=== PATIENT | female | born 1980 | race Two or more races ===

== ENCOUNTER → 2019-12-16 14:03 | Outpatient (CLI) | payer OTHER, SELFPAY ==
--- NOTE | ~2019-12-16 | MMUS_ITS ---
EXAMINATION: MM diagnostic tere BI w marsha, US breast LT limited HISTORY: Palpable lump in the upper outer quadrant of the left breast TECHNIQUE: Craniocaudal, mediolateral, and mediolateral oblique 3-D tomosynthesis images of the brekelly ts were performed and synthetic 2-D images were generated. CAD analysis was submitted and interpreted . High resolution limited left breast ultrasound was performed. COMPARISON: None, baseline BREAST PARENCHYMAL COMPOSITION: There are scattered areas of fibroglandular density. FINDINGS: MAMMOGRAPHIC FINDINGS: Right breast: There is no evidence of suspicious mass, calcification, or architectural distortion to suggest malignancy. Left breast: There is a focal asymmetry in the middle third of the upper breast at the 1:00 location 4 cm from the nipple corresponding to the palpable abnormality of concern. No suspicious calcificatio n or architectural distortion are identified. ULTRASOUND: There is a 1.6 x 0.8 cm complex cystic and solid mass at the 12:00 location in the breast 3 cm from t he nipple corresponding to the palpable abnormality of concern. There is mild peripheral vascularity and no posterior features. IMPRESSION: 1. Mammographic and sonographic findings suspicious for small left breast hematoma. Recommend follow- up targeted left breast ultrasound in one month to evaluate for resolution which would suggest a tangela clementina. If the mass does not resolve in this interval, would recommend proceeding to ultrasound-guided biopsy at that time. 2. No mammographic evidence of malignancy in the right breast. Annual screening mammography is recomm ended. BI-RADS category 4, suspicious findings. Reviewed, dictated and finalized at location A. IMPRESSION: 1. Mammographic and sonographic findings suspicious for small left breast hemat del. Recommend follow-up targeted left breast ultrasound in one month to evalua te for resolution which would suggest a hematoma. If the mass does not resolve in this interval, would recommend proceeding to ultrasound-guided biopsy at skip t time. 2. No mammographic evidence of malignancy in the right breast. Annual screening mammography is recommended. BI-RADS category 4, suspicious findings.
== END ==
PROVIDERS: Visit Provider Obstetrics & Gynecology
DX: N63.20 Unspecified lump in the left breast, unspecified quadrant (principal); R92.8 Other abnormal and inconclusive findings on diagnostic imaging of breast
CPT/HCPCS: 76642; 77062; 77066; G0279

== ENCOUNTER → 2020-01-16 15:00 | Outpatient (CLI) | payer OTHER, SELFPAY ==
--- NOTE | ~2020-01-16 | US_ITS ---
US breast LT limited INDICATION: Follow-up left breast mass TECHNIQUE: Dedicated left breast ultrasound COMPARISON: 12/16/2019 FINDINGS: The left breast is composed of normal heterogeneous echotexture without focal solid or cyst ic mass. Interval resolution of complex mass at the 12:00 position seen on prior examination. IMPRESSION: 1: Normal left breast ultrasound. BI-RADS CATEGORY 1 - NEGATIVE Reviewed, dictated and finalized at location A.
== END ==
PROVIDERS: Visit Provider Obstetrics & Gynecology
DX: N64.89 Other specified disorders of breast (principal)
CPT/HCPCS: 76642

== ENCOUNTER 2021-01-17 12:07 | Emergency (ER) | payer OTHER, SELFPAY ==
--- NOTE | ~2021-01-17 | US_ITS ---
EXAMINATION: US venous doppler LE RT DATE: 01/17/2021 12:32 INDICATION: Right lower limb pain and swelling. TECHNIQUE: Grayscale ultrasound images without and with compression and Doppler ultrasound images of the right lower extremity veins were obtained. COMPARISON: Ultrasound 07/26/2007 FINDINGS: The visualized portions of right common femoral vein, profunda (deep) femoral vein, femoral vein, pop liteal vein, peroneal veins, posterior tibial veins, and greater saphenous vein outflow are patent. IMPRESSION: 1. No deep venous thrombosis. Reviewed, dictated and finalized at location A.
[2021-01-17 12:09] VITALS: BP 109/76; PULSE 93; RESP 16; TEMP 36.6; O2SAT 100
[2021-01-17 14:20] VITALS: BP 111/64; PULSE 82; RESP 16; O2SAT 100
--- NOTE | 2021-01-17 14:40 | ED.GENADULT ---
HPI - General Adult General Chief complaint: Extremity Problem,Nontraumatic Stated complaint: right leg pain Time Seen by Provider: 01/17/21 14:11 Source: patient and RN notes reviewed Mode of arrival: ambulatory Limitations: no limitations History of Present Illness HPI narrative: Patient is a 40-year-old female who presents to emergency department for evaluation of tender swollen right forefoot noted history of swelling of the foot since she was a child but was concerned given it was warm and tender 1 day ago patient noticed warmth and tenderness has resolved now she has resultant swelling patient on arrival is in no distress denies injury or trauma or other complaints Related Data Home Medications Medication Instructions Recorded Confirmed levothyroxine 01/17/21 Allergies Allergy/AdvReac Type Severity Reaction Status Date / Time No Known Allergies Allergy Verified 01/17/21 14:19 Review of Systems Review of Systems: All systems reviewed & are unremarkable except as noted in HPI and below PMFSH Family History Family History (Updated 09/04/16 @ 14:11 by DOCTOR UNKNOWN) Mother Patient's mother is in good health Father Patient's father is in good health Social History Social History (Updated 01/17/21 @ 14:41 by Tung Burr PA-C) Smoking status: Current every day smoker Second hand tobacco smoke exposure: No Alcohol intake: never Gender identity (if verbalized by the patient): Female Exam Narrative: GENERAL: Well-appearing, well-nourished, and in no acute distress. HEAD: Normocephalic, atraumatic. EYES: PERRLA and EOMI. ENT: Nares clear, no rhinorrhea or epistaxis. Mucous membranes moist. CHEST: Clear to auscultation. No respiratory distress. No wheezes rales or rhonchi HEART: Regular rate and rhythm. No murmur heard. Normal peripheral pulses. EXTREMITIES: Normal range of motion. 1+ edema right forefoot midfoot no other deformities noted no erythema no warmth to touch SKIN: Warm, dry, no rash. NEURO: No focal deficits. Alert and oriented x3. Neurovascularly intact PSYCH: Normal mood and affect. Course Course Emergency Course: Patient in the room no distress aware of case findings treatment plan diagnosis felt appropriate for outpatient reevaluation made aware of her case findings Vital Signs Vital signs: Vital Signs Temperature 98 F 01/17/21 12:09 Pulse Rate 93 01/17/21 12:09 Respiratory Rate 16 01/17/21 12:09 Blood Pressure 109/76 01/17/21 12:09 Pulse Oximetry 100 01/17/21 12:09 Temperature 98 F 01/17/21 12:09 Pulse Rate 82 01/17/21 14:20 Respiratory Rate 16 01/17/21 14:20 Blood Pressure 111/64 01/17/21 14:20 Pulse Oximetry 100 01/17/21 14:20 Medical Decision Making MDM Narrative Medical decision making narrative: Patients injury or pain is consistent with musculoskeletal etiology. No signs of neurological or vascular compromise on exam. Compartments and tisues are soft without signs of compartment syndrome. Pain is felt appropriate for further evaluation on an outpatient basis. Vital Signs Vital Signs: Vital Signs Temperature 98 F 01/17/21 12:09 Pulse Rate 93 01/17/21 12:09 Respiratory Rate 16 01/17/21 12:09 Blood Pressure 109/76 01/17/21 12:09 Pulse Oximetry 100 01/17/21 12:09 Temperature 98 F 01/17/21 12:09 Pulse Rate 82 01/17/21 14:20 Respiratory Rate 16 01/17/21 14:20 Blood Pressure 111/64 01/17/21 14:20 Pulse Oximetry 100 01/17/21 14:20 Imaging Data Radiologist's impression: ITS Impressions Venous Doppler Study 01/17/21 12:33 IMPRESSION: 1. No deep venous thrombosis. Discharge Plan Discharge Clinical Impression: Swelling of right foot Patient Disposition: Home, Self-Care Condition: Stable Instructions: Antibiotic Form, Leg Pain (ED) Additional Instructions: Limited weight on the affected leg until able to bear weight without pain.
== END 2021-01-17 15:07 | disposition home or self-care (01) ==
LOC: ANHED 14:51
PROVIDERS: Emergency Provider Emergency Medicine
DX: M79.89 Other specified soft tissue disorders (principal); F17.200 Nicotine dependence, unspecified, uncomplicated
CPT/HCPCS: 93971; 99284

== ENCOUNTER → 2021-10-07 12:33 | Outpatient (CLI) | payer OTHER, SELFPAY ==
--- NOTE | ~2021-10-07 | MM_ITS ---
EXAMINATION: MM screening tere BI w marsha HISTORY: Screening TECHNIQUE: Craniocaudal and mediolateral oblique 3-D tomosynthesis images were obtained and synthetic 2-D images were generated. CAD analysis was submitted and interpreted. COMPARISON: 12/16/2019 BREAST PARENCHYMAL COMPOSITION: There are scattered areas of fibroglandular density. FINDINGS: There is no evidence of suspicious mass, calcification, or architectural distortion to sugg est malignancy in either breast. There has been no suspicious interval change. IMPRESSION: 1. No mammographic evidence of malignancy. 2. Recommend routine screening mammography in one year. BI-RADS Category 1: Negative Reviewed, dictated and finalized at location A.
== END ==
PROVIDERS: PCP Student in an Organized Health Care Education/Training Program; Visit Provider Student in an Organized Health Care Education/Training Program
DX: Z12.31 Encounter for screening mammogram for malignant neoplasm of breast (principal)
CPT/HCPCS: 77063; 77067

== ENCOUNTER 2024-01-23 05:20 | Observation (INO) | payer OTHER, SELFPAY ==
[2024-01-23] VITALS (22 sets, daily range): BP systolic 91–115; BP diastolic 55–76; PULSE 68–99; RESP 12–19; TEMP 36.3–37.1; O2SAT 97–100
--- NOTE | ~2024-01-23 | CT_ITS ---
EXAMINATION: CT abdomen pelvis w con DATE: 01/23/2024 07:17 INDICATION: Right abdominal pain. TECHNIQUE: Computed tomography (CT) of the abdomen and pelvis was performed with 100 mL Omnipaque 350 intravenous contrast. Automated exposure control and iterative reconstruction technique were employe d. The dose-length product was 286.79 mGy-cm. COMPARISON: None. FINDINGS: The visualized portions of the lung bases demonstrate mild atelectasis. No pleural effusion . The heart size is normal. No pericardial effusion. The liver, gallbladder, spleen, pancreas, and ad renal glands are normal. There are cysts in the kidneys measuring up to 12 mm on the right. There are no dilated loops of bowel. There is fat stranding around a diverticulum of the ascending colon, cons istent with diverticulitis. There are punctate foci of free gas in this area. The appendix is normal. There are no pathologically enlarged lymph nodes. There is physiologic fluid in the pelvis. The left periuterine and ovarian veins are enlarged, consistent with pelvic venous insufficiency. The bones a re unremarkable. IMPRESSION: 1. Diverticulitis of ascending colon with microperforation. No abscess. Reviewed, dictated and finalized at location A.
[2024-01-23 05:51] LABS: Basophils Absolute Auto 0.1 K/mm3 (0.0-0.1); Basophils Percent Auto 0.5 % (0.2-1.2); Eosinophils Absolute Auto 0.4 K/mm3 (0-0.3); Eosinophils Percent Auto 2.8 % (0-4.4); Hematocrit 38.5 % (37.0-47.0); Hemoglobin 13.2 g/dL (12.0-15.0); Immature Granulocyte Absolute 0.04 K/mm3 (0.00-0.031); Immature Granulocyte Percent A 0.3 % (0-0.5); Lymphocytes Absolute Auto 2.67 K/mm3 (0.9-3.2); Lymphocytes Percent Auto 20.8 % (18.3-44.2); Mean Corpuscular HGB Conc 34.3 g/dl (32-36); Mean Corpuscular Hemoglobin 31.9 pg (26-34); Mean Platelet Volume 10.7 fl (7.4-10.4); Monocytes Absolute Auto 1.3 K/mm3 (0.1-0.6); Neutrophils Absolute Auto 8.4 K/mm3 (1.3-6.7); Neutrophils Percent Auto 65.6 % (45.5-73.1); Platelet Count Result 197 k/mm3 (150-375); Red Blood Count 4.14 M/mm3 (4.2-5.4); Red Cell Distribution Width 13.2 % (11.5-14.5); White Blood Count 12.8 K/mm3 (4.5-10.0)
[2024-01-23 06:00] LABS: Alanine Aminotransferase 28 U/L (6-35); Albumin Level 4.2 g/dL (3.5-5.1); Alkaline Phosphatase 95 U/L (38-126); Anion Gap 10 mmol/L (4-12); Aspartate Amino Transferase 33 U/L (14-36); Bilirubin,Total 0.7 mg/dL (0.2-1.3); Blood Urea Nitrogen 12 mg/dL (7-17); Calcium 8.6 mg/dL (8.4-10.2); Carbon Dioxide 20 mmol/L (22-30); Chloride 106 mmol/L (98-107); Estimated CRCL calculation 97 ml/min; Estimated Glomerular Filt Rate > 60; Glucose 133 mg/dL (65-110); Lipase 32 U/L (23-300); Potassium 3.9 mmol/L (3.4-5.0); Sodium 136 mmol/L (137-145)
--- NOTE | 2024-01-23 06:01 | ED.ABDPAIN ---
HPI - Abdominal Pain General Chief Complaint: Abdominal Pain <Lamin Carroll MD - Last Filed: 02/03/24 22:48> Stated Complaint: abdominal pain <Lamin Carroll MD - Last Filed: 02/03/24 22:48> Time Seen by Provider: 01/23/24 05:37 <Lamin Carroll MD - Last Filed: 02/03/24 22:48> History of Present Illness HPI narrative: This is a 43-year-old female with no pertinent past medical history who presents to the emergency department for evaluation of abdominal pain. Patient states that for last 3 days she has been having intermittent abdominal pain in the center of her abdomen that does not radiate anywhere. Denies any nauseousness, vomiting, associated back pain, fever, chills, dysuria, constipation, diarrhea. Patient states that she has tried Tylenol without any symptomatic relief. She was recently out of the country for travel 2 weeks ago for a prolonged period of time. Denies any abdominal surgeries. Says she has a history of ovarian cyst but this does not feel similar to her. Denies any trauma, injuries or other recent changes such as diet or medication adjustments. <Lamin Carroll MD - Last Filed: 02/03/24 22:48> Related Data Home Medications: Home Medications Medication Instructions Recorded Confirmed levothyroxine 75 mcg tablet 75 mcg PO DAILY 01/17/21 01/23/24 (Synthroid) <Lamin Carroll MD - Last Filed: 02/03/24 22:48> Allergies/Adverse Reactions: Allergies Allergy/AdvReac Type Severity Reaction Status Date / Time fluconazole Allergy Swelling Verified 01/23/24 08:59 terconazole Allergy Swelling Verified 01/23/24 08:59 <Lamin Carroll MD - Last Filed: 02/03/24 22:48> Review of Systems Review of Systems: As reviewed above in the HPI <Lamin Carroll MD - Last Filed: 02/03/24 22:48> PMFSH Past Medical History Medical History: Medical History Hypothyroidism <Lamin Carroll MD - Last Filed: 02/03/24 22:48> Surgical History Surgical History: Surgical History No history of previous surgery <Lamin Carroll MD - Last Filed: 02/03/24 22:48> Family History Family History: Family History Mother Patient's mother is in good health Father Lung fibrosis <Lamin Carroll MD - Last Filed: 02/03/24 22:48> Social History Social History: Social History Social History: Patient smokes 3 4 cigarettes per day. She has smoked for about 10 years off and on. No alcohol or drug use. She lives at home with her and 4 children. She is a full code. She nominates her to be the individual who would make medical decisions for her if she is unable. Smoking status: Current some day smoker Tobacco type: cigarettes Second hand tobacco smoke exposure: No Alcohol intake: never Substance use: never Do You Feel Safe in your Home?: Yes Lack of Transportation: No Lack of Food: Never True Current Housing: I Have Housing Concerned About Future Housing: No Difficulty Paying Gas/Electric Bills: No Difficulty Paying for Meds: No Currently Unemployed: No Education: Bachelor's Degree Difficulty w/ Childcare or Family Care: No Gender identity (if verbalized by the patient): Female Spiritual care concerns: No <Lamin Carroll MD - Last Filed: 02/03/24 22:48> Exam Narrative: GENERAL: [Well-appearing, well-nourished, and in no acute distress.] HEAD: [Normocephalic, atraumatic.] EYES: [PERRLA and EOMI.] ENT: Nares clear, no rhinorrhea or epistaxis. Mucous membranes moist. NECK: Supple. CHEST: [Clear to auscultation. No respiratory distress.] HEART: [Regular rate and rhythm]. No murmur heard. [Normal
[2024-01-23 06:21] LABS: BEDSIDEPREGUCG Negative
[2024-01-23] MEDS: SODIUM CHLORIDE 0.9% IV 1,000 ML 999 ML IV CONT ×2 (06:23→17:18)
[2024-01-23] MEDS: MAG HYDROX/AL HYDROX/SIMETH 30 ML UDC PO (06:23)
[2024-01-23] MEDS: FAMOTIDINE 20 MG/2 ML VIAL IV PUSH (06:24)
[2024-01-23] MEDS: MORPHINE SULFATE (*CRX) 4 MG/ML INJ IV PUSH ×2 (06:24→15:36)
[2024-01-23 06:31] LABS: Add Urine Microscopic? YES; Appearance Urine Clear (Clear); Bacteria Urine None Seen /hpf; Bilirubin Urine Negative (Negative); Blood Urine 3+ (Negative); Color Urine Yellow (Yellow); Glucose Urine UA Negative (Negative); Ketones Urine Negative (Negative); Leukocyte Esterase Ur Negative LEU/UL (Negative); Nitrate Urine Negative (Negative); Non Pathogenic Casts 0-2; Protein Urine Negative (Negative); RBC Urine 21-50 /hpf (0-2); Specific Grav Ur 1.022 (1.001-1.035); Squamous Epithelial Cell Urine None Seen /hpf (Few); Urobilinogen Urine 0.2 mg/dL (<2.0); WBC Urine 0-5 /hpf (0-3); pH Urine 5.5 (5.0-9.0)
[2024-01-23] MEDS: PIPERACILLN/TAZ 3.375GM/NS50ML 3.375 GM/50 ML BAG IVPB ×3 (08:57→18:03)
--- NOTE | 2024-01-23 09:49 | PM.IMHP ---
H&P: HPI History of Present Illness Date/Time: 01/23/24 09:49 Chief Complaint: Abdominal pain Narrative: 43yo female with hypothyroidism here for abdominal pain. Patient developed mild mid abdominal pain about 3 days ago. There has been no change in her diet. The pain is worse after eating. She has never had this before. No fever, nausea or vomiting. She does have occasional chills. No prior bowel issues. No constipation or diarrhea. Her last bowel movement was 2 days ago. No melena, hematochezia or mucus in the stools. No dysuria or hematuria but is having urinary frequency and urgency. Never had a colonoscopy. No family history of colon cancer. Review systems was negative except for occasional chronic intermittent ankle edema. She was taking ibuprofen with some benefit but last night her symptoms worsened prompting her to come to the emergency room. She was recently out of the country for travel 2 weeks ago to [place]. She did swim in a [place] but otherwise consumed bottle water. In the emergency room, she was hemodynamically stable. White blood count was 12.8 K. sodium 136, bicarb 20 and glucose 133 CMP normal. Lipase normal. UA showed 3+ blood and 21-50 red cells. Urine test was negative. CT of the abdomen pelvis with contrast showed mild atelectasis, renal cysts, and stranding around the a diverticulum of the ascending colon consistent with diverticulitis. There are punctate foci of free gas in the area consistent with microperforation. No abscess. She does have dilated pelvic veins consistent with pelvic venous insufficiency. She was treated with morphine, Pepcid, Mylanta and started on Zosyn. IV fluids started. She was admitted for further care. General surgery was consulted out of the emergency room. Review of Systems Review of Systems: All systems reviewed & are unremarkable except as noted in HPI and below PMFSH Past Medical History Medical History Hypothyroidism Surgical History Surgical History No history of previous surgery Family History Family History Mother Patient's mother is in good health Father Lung fibrosis Social History Social History Social History: Patient smokes 3 4 cigarettes per day. She has smoked for about 10 years off and on. No alcohol or drug use. She lives at home with her and 4 children. She is a full code. She nominates her to be the individual who would make medical decisions for her if she is unable. Smoking status: Current some day smoker Tobacco type: cigarettes Second hand tobacco smoke exposure: No Alcohol intake: never Substance use: never Do You Feel Safe in your Home?: Yes Lack of Transportation: No Lack of Food: Never True Current Housing: I Have Housing Concerned About Future Housing: No Difficulty Paying Gas/Electric Bills: No Difficulty Paying for Meds: No Currently Unemployed: No Education: Bachelor's Degree Difficulty w/ Childcare or Family Care: No Gender identity (if verbalized by the patient): Female Spiritual care concerns: No Meds Home Medications and Allergies Home Medications Medication Instructions Recorded Confirmed Type levothyroxine 75 mcg tablet 75 mcg PO DAILY 01/17/21 01/23/24 History (Synthroid) Allergies Allergy/AdvReac Type Severity Reaction Status Date / Time fluconazole Allergy Swelling Verified 01/23/24 08:59 terconazole Allergy Swelling Verified 01/23/24 08:59 Vital Signs Vital Signs - 24 hr 01/23/24 05:36 01/23/24 06:34 01/23/24 06:45 Temperature 98.7 F Pulse Rate 85 84 82 Respiratory Rate 17 17 12 Blood Pressure 112/68 Pulse Oximetry 99 98 100 Oxygen Delivery Room Air 01/23/24 06:46 01/23/24 07:26
[2024-01-23] MEDS: SODIUM CHLORIDE 0.9% IV 1,000 ML 70 ML IV CONT (10:48)
--- NOTE | 2024-01-23 11:08 | WPDCN ---
Assessment and Plan Assessment and plan (1) Diverticulitis of colon with perforation: Code(s): K57.20 - Diverticulitis of large intestine with perforation and abscess without bleeding Status: Acute Assessment and Plan: Patient appears to have uncomplicated right ascending diverticulitis with micro perforation which is likely sealed. There is no periappendiceal abscess. No generalized peritonitis is noted. Agree with bowel rest and IV antibiotics. Since this is her 1st episode I do not think she will need any surgical management was she has recurring episodes of diverticulitis involving this area of the colon. She is now 43 and due to her age as well as this episode of diverticulitis I think she should get a colonoscopy performed about 4 to 6 weeks after discharge. We will keep her NPO for today and if her clinical exam improved and white blood count normalizes tomorrow although unlikely start her on liquids and advanced diet as clinically indicated. She will need oral antibiotic therapy at home for another 10 to 14 days after discharge. No need for emergent surgical management at this time. Surgical will follow. HPI Data of Consult Date/Time: 01/23/24 11:08 Requesting Physician: Jose Watts MD Primary Care Provider: Arie Perez, DO Consult Narrative Reason for consult: Right ascending colonic diverticulitis with micro perforation Narrative: Rodger Archer is a 43 year old female who started having pain 2- 3 days ago mostly load on the mid and right side of the abdomen. No nausea or vomiting. Not had a bowel movement for 2 days. Workup in the emergency room showed [place] [address] scan abdomen pelvis showed a small ruptured right-sided diverticular of the ascending colon with a small focus of extraluminal air likely consistent with a micro perforation but no abscess. She is feeling better she has been in admitted to the hospital. She has been started on Zosyn for IV antibiotics. She has never had a colonoscopy in the past although has her primary care physician has recommended she get a colonoscopy due to her age of 43. She has never had diverticulitis in the past. She has never had abdominal surgery in the past. Review of Systems Review of Systems: The remainder of the review of systems to include constitutional, HEENT, cardiovascular, respiratory, GI, , integumentary, musculoskeletal, endocrine, immunologic, hematologic, psychiatric, and neurologic are all negative except for which is mentioned above in the HPI. [facility] Past Medical History Medical History Hypothyroidism Surgical History Surgical History No history of previous surgery Family History Family History Mother Patient's mother is in good health Father Lung fibrosis Social History Social History Social History: Patient smokes 3 4 cigarettes per day. She has smoked for about 10 years off and on. No alcohol or drug use. She lives at home with her and 4 children. She is a full code. She nominates her to be the individual who would make medical decisions for her if she is unable. Smoking status: Current some day smoker Tobacco type: cigarettes Second hand tobacco smoke exposure: No Alcohol intake: never Substance use: never Do You Feel Safe in your Home?: Yes Lack of Transportation: No Lack of Food: Never True Current Housing: I Have Housing Concerned About Future Housing: No Difficulty Paying Gas/Electric Bills: No Difficulty Paying for Meds: No Currently Unemployed: No Education: Bachelor's Degree Difficulty w/ Childcare or Family Care: No Gender identity (if verbalized by the patient): Female Spiritual care c
[2024-01-23] MEDS: DOCOSANOL 10% CREAM 2 GM 1 APPLIC TOPICAL ×2 (12:48→16:32)
[2024-01-23] MEDS: PANTOPRAZOLE SODIUM IV 40 MG VIAL IV PUSH (12:48)
[2024-01-23 17:02] LABS: Glucose Point of Care 91 mg/dl (65-105)
[2024-01-23] MEDS: ONDANSETRON INJ 4 MG/2 ML VIAL IV PUSH (18:03)
[2024-01-24] VITALS (7 sets, daily range): BP systolic 82–98; BP diastolic 52–74; PULSE 55–78; RESP 14–16; TEMP 36.2–36.8; O2SAT 97–100
[2024-01-24] MEDS: PIPERACILLN/TAZ 3.375GM/NS50ML 3.375 GM/50 ML BAG IVPB ×3 (00:30→12:24)
[2024-01-24] MEDS: SODIUM CHLORIDE 0.9% IV 1,000 ML 70 ML IV CONT (00:32)
[2024-01-24] MEDS: SODIUM CHLORIDE 0.9% IV 500 ML 999 ML IV CONT ×2 (05:04→06:12)
[2024-01-24 06:42] LABS: Basophils Absolute Auto 0.1 K/mm3 (0.0-0.1); Basophils Percent Auto 0.9 % (0.2-1.2); Eosinophils Absolute Auto 0.3 K/mm3 (0-0.3); Eosinophils Percent Auto 2.5 % (0-4.4); Hematocrit 35.5 % (37.0-47.0); Hemoglobin 11.8 g/dL (12.0-15.0); Immature Granulocyte Absolute 0.04 K/mm3 (0.00-0.031); Immature Granulocyte Percent A 0.4 % (0-0.5); Lymphocytes Absolute Auto 2.87 K/mm3 (0.9-3.2); Lymphocytes Percent Auto 28.1 % (18.3-44.2); Mean Corpuscular HGB Conc 33.2 g/dl (32-36); Mean Corpuscular Hemoglobin 32.2 pg (26-34); Mean Corpuscular Volume 96.7 fl (80-100); Mean Platelet Volume 11.1 fl (7.4-10.4); Monocytes Absolute Auto 0.8 K/mm3 (0.1-0.6); Monocytes Percent Auto 7.7 % (2.6-8.5); Neutrophils Absolute Auto 6.2 K/mm3 (1.3-6.7); Neutrophils Percent Auto 60.4 % (45.5-73.1); Platelet Count Result 185 k/mm3 (150-375); Red Blood Count 3.67 M/mm3 (4.2-5.4); Red Cell Distribution Width 13.2 % (11.5-14.5); White Blood Count 10.2 K/mm3 (4.5-10.0)
[2024-01-24 06:54] LABS: Alanine Aminotransferase 19 U/L (6-35); Albumin Level 3.3 g/dL (3.5-5.1); Alkaline Phosphatase 78 U/L (38-126); Anion Gap 13 mmol/L (4-12); Aspartate Amino Transferase 20 U/L (14-36); Blood Urea Nitrogen 10 mg/dL (7-17); Calcium 7.6 mg/dL (8.4-10.2); Carbon Dioxide 14 mmol/L (22-30); Chloride 109 mmol/L (98-107); Estimated CRCL calculation 97 ml/min; Estimated Glomerular Filt Rate > 60; Glucose 64 mg/dL (65-110); Potassium 3.8 mmol/L (3.4-5.0); Sodium 136 mmol/L (137-145)
[2024-01-24] MEDS: ENOXAPARIN 40 MG/0.4 ML SYRINGE SUB-Q (09:07)
[2024-01-24] MEDS: PANTOPRAZOLE SODIUM IV 40 MG VIAL IV PUSH (09:08)
[2024-01-24] MEDS: DOCOSANOL 10% CREAM 2 GM 1 APPLIC TOPICAL ×5 (09:08→20:38)
--- NOTE | 2024-01-24 10:14 | WPDPN ---
Progress Note: A&P Assessment and Plan (1) Diverticulitis of colon with perforation: Code(s): K57.20 - Diverticulitis of large intestine with perforation and abscess without bleeding Status: Acute Assessment and Plan: Responding well to non operative management of her right-sided diverticulitis with micro perforation. White blood count is normal. No fever. Abdominal pain is minimal. Can go ahead and and advance diet to full liquids today. One continue IV antibiotics for right now. Hopefully can advance to low-fiber diet tomorrow and discharge on oral antibiotics hopefully tomorrow. Subjective Date/time seen: 01/24/24 10:14 Interval history: Patient feels much better today. The no abdominal pain. No bowel or flatus yet. White blood count is normal today. Fever. Exam GI: Other: Abdomen is soft and nondistended. Deep palpation throughout the abdomen reveals no tenderness. Objective Data Vital Signs Vital Signs: Vital Signs - 24 hr 01/23/24 14:35 01/23/24 18:29 01/23/24 21:44 Temperature 36.3 C L 36.3 C L Pulse Rate 68 70 Respiratory Rate 17 16 Blood Pressure 102/65 106/55 L 91/63 L Pulse Oximetry 100 100 Oxygen Delivery 01/23/24 20:00 01/24/24 05:00 01/24/24 05:57 Temperature 36.4 C Pulse Rate 78 Respiratory Rate 16 Blood Pressure 82/52 L 88/58 L Pulse Oximetry 97 Oxygen Delivery Room Air 01/24/24 09:08 Temperature Pulse Rate Respiratory Rate 16 Blood Pressure Pulse Oximetry 97 Oxygen Delivery Room Air Intake/Output Intake/Output: Intake & Output 01/21/24 01/22/24 01/23/24 01/24/24 23:59 23:59 23:59 23:59 Intake Total 1150 1551.5 Balance 1150 1551.5 Meds/Results Medications: Active Medications Generic Name Dose Route Start Last Admin Trade Name Freq PRN Reason Stop Dose Admin Docosanol 1 applic 01/23/24 10:30 01/24/24 09:08 Docosanol 10% Cream 2 Gm TOPICAL 1 applic 5 TIMES DAILY MARTA Administration Enoxaparin Sodium 40 mg 01/24/24 09:00 01/24/24 09:07 Enoxaparin 40 Mg/0.4 Ml Syringe SUB-Q 40 mg DAILY MARTA Administration Piperacillin/Tazobactam/Dextrose 3.375 gm in 50 mls @ 100 mls/hr 01/23/24 08:00 01/24/24 05:53 Zosyn 3.375 Gm/Ns 50 Ml IVPB 100 mls/hr Q6HR MARTA Administration Sodium Chloride 1,000 mls @ 150 mls/hr 01/23/24 08:40 01/24/24 08:15 Normal Saline Iv IV CONT 150 mls/hr .[id number] MARTA Infusion Morphine Sulfate 2 mg 01/23/24 17:09 Morphine Sulfate (*Crx) 4 Mg/Ml Inj IV PUSH Q2H PRN Pain Rated 7-10 Ondansetron HCl 4 mg 01/23/24 08:38 01/23/24 18:03 Ondansetron Inj 4 Mg/2 Ml Vial IV PUSH 4 mg Q4H PRN Administration Nausea Pantoprazole Sodium 40 mg 01/24/24 09:00 01/24/24 09:08 Pantoprazole Sodium Iv 40 Mg Vial IV PUSH 40 mg QAM MARTA Administration Radiology Results: ITS Impressions Abdomen/Pelvis CT 01/23/24 07:18 IMPRESSION: 1. Diverticulitis of ascending colon with microperforation. No abscess. Labs Labs: Laboratory Results - last 24 hr 01/23/24 01/24/24 16:58 06:13 WBC 10.2 H RBC 3.67 L Hgb 11.8 L Hct 35.5 L MCV 96.7 MCH 32.2 MCHC 33.2 RDW 13.2 Plt Count 185 MPV 11.1 H Immature Gran % (Auto) 0.4 Neut % (Auto) 60.4 Lymph % (Auto) 28.1 Newton % (Auto) 7.7 Eos % (Auto) 2.5 Baso % (Auto) 0.9 Lymph # (Auto) 2.87 Newton # (Auto) 0.8 H Eos # (Auto) 0.3 Baso # (Auto) 0.1 Abs Immat Gran (auto) 0.04 H Absolute Neuts (auto) 6.2 Absolute Nucleated RBC 0.000 Nucleated RBC % 0.0 Sodium 136 L Potassium 3.8 Chloride 109 H Carbon Dioxide 14 L Anion Gap 13 H BUN 10 Creatinine 0.50 L Estim Creat Clear Calc 97 Estimated GFR > 60 Glucose 64 L POC Capillary Glucose 91 Calcium 7.6 L Total Bilirubin 1.0 AST 20 ALT 19 Alkaline Phosphatase 78 Total Protein 6.0 L Albumin 3.3 L
--- NOTE | 2024-01-24 11:41 | PM.IMPN ---
Progress Note: A&P Assessment and Plan (1) Diverticulitis of colon with perforation: Code(s): K57.20 - Diverticulitis of large intestine with perforation and abscess without bleeding Status: Acute Assessment and Plan: Patient presents with abdominal pain found to have diverticulitis with microperforation. Started on Zosyn. General surgery consulted and appreciate their input. WBC better. Pain improved. Continue Bowel rest and IV fluids. Patient will need a colonoscopy at some point. (2) Hypotension: Code(s): I95.9 - Hypotension, unspecified Status: Acute Assessment and Plan: BP soft last evening so fluid bolus given. Her BP normally runs soft at baseline Lower BP could be related to narcotics and bedrest. Parameters placed on narcotics. BP still soft this morning so will advance IV fluids. Check TSH (3) Hypothyroidism: Code(s): E03.9 - Hypothyroidism, unspecified Status: Acute Assessment and Plan: Patient on levothyroxine chronically. Resume when diet started (4) Tobacco abuse: Code(s): Z72.0 - Tobacco use Status: Acute Assessment and Plan: Patient was educated about the benefits of smoking cessation. Plan DVT Prophylaxis - lovenox Code status - full Subjective Date/time seen: 01/24/24 11:41 Interval history: 43yo female with hypothyroidism here for abdominal pain. No chest pain, shortness of breath or dizziness. Abd pain better. Does have soft BP when she has her BP checked in the clinic. Exam Narrative: AF 97.6 88/59 78 16 97% ra Gen - NARD Chest - CTA bilaterally, nml RR CV - RRR S1/S2 Abd - minimal right flank tenderness. Ext - No pedal edema Psych - Nml mood and affect Skin - Warm and dry Objective Data Vital Signs Vital Signs: Vital Signs - 24 hr 01/23/24 14:35 01/23/24 18:29 01/23/24 21:44 Temperature 97.4 F L 97.4 F L Pulse Rate 68 70 Respiratory Rate 17 16 Blood Pressure 102/65 106/55 L 91/63 L Pulse Oximetry 100 100 Oxygen Delivery 01/23/24 20:00 01/24/24 05:00 01/24/24 05:57 Temperature 97.6 F Pulse Rate 78 Respiratory Rate 16 Blood Pressure 82/52 L 88/58 L Pulse Oximetry 97 Oxygen Delivery Room Air 01/24/24 09:08 01/24/24 10:39 Temperature Pulse Rate Respiratory Rate 16 Blood Pressure 88/59 L Pulse Oximetry 97 Oxygen Delivery Room Air Intake/Output Intake/Output: Intake & Output 01/21/24 01/22/24 01/23/24 01/24/24 23:59 23:59 23:59 23:59 Intake Total 1150 1551.5 Balance 1150 1551.5 Meds/Results Medications: Active Medications Generic Name Dose Route Start Last Admin Trade Name Freq PRN Reason Stop Dose Admin Docosanol 1 applic 01/23/24 10:30 01/24/24 09:08 Docosanol 10% Cream 2 Gm TOPICAL 1 applic 5 TIMES DAILY MARTA Administration Enoxaparin Sodium 40 mg 01/24/24 09:00 01/24/24 09:07 Enoxaparin 40 Mg/0.4 Ml Syringe SUB-Q 40 mg DAILY MARTA Administration Piperacillin/Tazobactam/Dextrose 3.375 gm in 50 mls @ 100 mls/hr 01/23/24 08:00 01/24/24 05:53 Zosyn 3.375 Gm/Ns 50 Ml IVPB 100 mls/hr Q6HR MARTA Administration Sodium Chloride 1,000 mls @ 150 mls/hr 01/23/24 08:40 01/24/24 08:15 Normal Saline Iv IV CONT 150 mls/hr .[id number] MARTA Infusion Morphine Sulfate 2 mg 01/23/24 17:09 Morphine Sulfate (*Crx) 4 Mg/Ml Inj IV PUSH Q2H PRN Pain Rated 7-10 Ondansetron HCl 4 mg 01/23/24 08:38 01/23/24 18:03 Ondansetron Inj 4 Mg/2 Ml Vial IV PUSH 4 mg Q4H PRN Administration Nausea Pantoprazole Sodium 40 mg 01/24/24 09:00 01/24/24 09:08 Pantoprazole Sodium Iv 40 Mg Vial IV PUSH 40 mg QAM MARTA Administration Radiology Results: ITS Impressions Abdomen/Pelvis CT 01/23/24 07:18 IMPRESSION: 1. Diverticulitis of ascending colon with microperforation. No abscess. Labs Labs: Laboratory Results - last 24 hr 08
[2024-01-24] MEDS: SODIUM CHLORIDE 0.9% IV 1,000 ML 150 ML IV CONT (11:55)
[2024-01-24] MEDS: AMOXICILLIN/CLAVULANATE K 875-125 MG TAB 1 TABLET PO (20:38)
[2024-01-24] MEDS: metroNIDAZOLE 500 MG TABLET PO (20:38)
[2024-01-24] MEDS: SODIUM CHLORIDE 0.9% IV 1,000 ML 75 ML IV CONT (20:43)
[2024-01-25 05:52] VITALS: BP 97/60; PULSE 76; RESP 13; TEMP 36.7; O2SAT 97
[2024-01-25] MEDS: metroNIDAZOLE 500 MG TABLET PO (05:57)
[2024-01-25] MEDS: LEVOTHYROXINE SODIUM 75 MCG TABLET PO (05:58)
[2024-01-25 06:24] LABS: Basophils Percent Auto 0.5 % (0.2-1.2); Eosinophils Absolute Auto 0.2 K/mm3 (0-0.3); Eosinophils Percent Auto 2.6 % (0-4.4); Hematocrit 32.5 % (37.0-47.0); Immature Granulocyte Absolute 0.01 K/mm3 (0.00-0.031); Immature Granulocyte Percent A 0.2 % (0-0.5); Lymphocytes Absolute Auto 2.26 K/mm3 (0.9-3.2); Lymphocytes Percent Auto 36.2 % (18.3-44.2); Mean Corpuscular HGB Conc 33.8 g/dl (32-36); Mean Corpuscular Hemoglobin 32.1 pg (26-34); Mean Corpuscular Volume 94.8 fl (80-100); Mean Platelet Volume 10.9 fl (7.4-10.4); Monocytes Absolute Auto 0.5 K/mm3 (0.1-0.6); Monocytes Percent Auto 8.5 % (2.6-8.5); Neutrophils Absolute Auto 3.3 K/mm3 (1.3-6.7); Platelet Count Result 182 k/mm3 (150-375); Red Blood Count 3.43 M/mm3 (4.2-5.4); Red Cell Distribution Width 13.1 % (11.5-14.5); White Blood Count 6.3 K/mm3 (4.5-10.0)
[2024-01-25 06:32] LABS: Anion Gap 7 mmol/L (4-12); Blood Urea Nitrogen 5 mg/dL (7-17); Calcium 7.9 mg/dL (8.4-10.2); Carbon Dioxide 18 mmol/L (22-30); Chloride 109 mmol/L (98-107); Estimated CRCL calculation 118 ml/min; Estimated Glomerular Filt Rate > 60; Glucose 92 mg/dL (65-110); Potassium 3.8 mmol/L (3.4-5.0); Sodium 134 mmol/L (137-145)
[2024-01-25 08:49] LABS: Cortisol Random 5.21 ug/dL
[2024-01-25] MEDS: ENOXAPARIN 40 MG/0.4 ML SYRINGE SUB-Q (09:29)
[2024-01-25] MEDS: PANTOPRAZOLE 40 MG TABLET PO (09:29)
[2024-01-25] MEDS: AMOXICILLIN/CLAVULANATE K 875-125 MG TAB 1 TABLET PO (09:29)
[2024-01-25] MEDS: DOCOSANOL 10% CREAM 2 GM 1 APPLIC TOPICAL (09:30)
--- NOTE | 2024-01-25 09:40 | WPDPN ---
Progress Note: A&P Assessment and Plan (1) Diverticulitis of colon with perforation: Code(s): K57.20 - Diverticulitis of large intestine with perforation and abscess without bleeding Status: Acute Assessment and Plan: Patient has recovered well after right-sided diverticulitis with micro perforation. She has no pain now and white blood cell count is normal. No fever. Continue oral antibiotics for another 7 to 10 days. Augmentin Flagyl will be adequate. She can follow-up with the primary care physician as needed after discharge. She does not need to see general surgery. Would not recommend any elective surgical resection of this area only since it was only her 1st episode of diverticulitis. I do recommend that she get a colonoscopy done in 4 to 6 weeks which can be sent to her primary care physician. She should stay on a low-fiber diet for the next 2 weeks and then switch to a high-fiber diet. Can discharge from the hospital at discretion of hospitalist service. Subjective Date/time seen: 01/25/24 09:40 Interval history: Patient is doing well. Tolerated low-fiber diet. No complaints of pain today. No nausea. She did have a loose stool today which was loose and nonblood. She was switched to Augmentin and Flagyl yesterday p.o. which she tolerated well. Exam GI: Other: Abdomen is soft and nondistended. No tenderness to palpation. Benign. Objective Data Vital Signs Vital Signs: Vital Signs - 24 hr 01/24/24 10:39 01/24/24 14:38 01/24/24 15:10 Temperature 36.8 C Pulse Rate 55 L Respiratory Rate 16 16 Blood Pressure 88/59 L 98/62 L Pulse Oximetry 100 100 Oxygen Delivery 01/24/24 21:32 01/24/24 20:00 01/25/24 05:52 Temperature 36.2 C L 36.7 C Pulse Rate 63 76 Respiratory Rate 14 13 Blood Pressure 88/74 L 97/60 L Pulse Oximetry 100 97 Oxygen Delivery Room Air Intake/Output Intake/Output: Intake & Output 01/22/24 01/23/24 01/24/24 01/25/24 23:59 23:59 23:59 23:59 Intake Total 1150 3377.6 250 Balance 1150 3377.6 250 Meds/Results Medications: Active Medications Generic Name Dose Route Start Last Admin Trade Name Freq PRN Reason Stop Dose Admin Amoxicillin/Clavulanate Potassium 1 tablet 01/24/24 21:00 01/25/24 09:29 Amoxicillin/Clavulanate K 875-125 Mg Tab PO 1 tablet Q12HR [facility] Administration Docosanol 1 applic 01/23/24 10:30 01/25/24 09:30 Docosanol 10% Cream 2 Gm TOPICAL 1 applic 5 TIMES DAILY MARTA Administration Enoxaparin Sodium 40 mg 01/24/24 09:00 01/25/24 09:29 Enoxaparin 40 Mg/0.4 Ml Syringe SUB-Q 40 mg DAILY MARTA Administration Sodium Chloride 1,000 mls @ 75 mls/hr 01/23/24 08:40 01/25/24 08:35 Normal Saline Iv IV CONT Not Given .[id number] [facility] Levothyroxine Sodium 75 mcg 01/24/24 16:50 01/25/24 05:58 Levothyroxine Sodium 75 Mcg Tablet PO 75 mcg DAILY@0630 MARTA Administration Metronidazole 500 mg 01/24/24 22:00 01/25/24 05:57 Metronidazole 500 Mg Tablet PO 500 mg Q8HR MARTA Administration Morphine Sulfate 2 mg 01/23/24 17:09 Morphine Sulfate (*Crx) 4 Mg/Ml Inj IV PUSH Q2H PRN Pain Rated 7-10 Ondansetron HCl 4 mg 01/23/24 08:38 01/23/24 18:03 Ondansetron Inj 4 Mg/2 Ml Vial IV PUSH 4 mg Q4H PRN Administration Nausea Pantoprazole Sodium 40 mg 01/25/24 09:00 01/25/24 09:29 Pantoprazole 40 Mg Tablet PO 40 mg QAM MARTA Administration Radiology Results: ITS Impressions Abdomen/Pelvis CT 01/23/24 07:18 IMPRESSION: 1. Diverticulitis of ascending colon with microperforation. No abscess. Labs Labs: Laboratory Results - last 24 hr 01/25/24 01/25/24 06:07 06:09 WBC 6.3 RBC 3.43 L Hgb 11.0 L Hct 32.5 L MCV 94.8 MCH 32.1 MCHC 33.8 RDW 13.1 Plt Count 182 MPV 10.9 H Immature Gran % (Auto) 0.2 Neut % (Auto) 52.0 Lymph % (Auto) 36.2 [place] % (Auto) 8.5 Eos % (Auto) 2.6 Baso % (Auto)
[2024-01-25 12:18] VITALS: BP 96/63; PULSE 68; RESP 16; TEMP 36.4; O2SAT 99
[2024-01-25 12:24] VITALS: BP 108/63; PULSE 70; RESP 16; O2SAT 100
[2024-01-25 12:26] VITALS: BP 103/66; PULSE 65; O2SAT 100
--- NOTE | 2024-01-25 13:04 | PM.DS ---
DS: Admitting Diagnosis Discharge Date 01/25/24 Admitting Diagnosis Abdominal pain DS: Discharge Diagnosis Discharge Diagnosis (1) Diverticulitis of colon with perforation: Code(s): K57.20 - Diverticulitis of large intestine with perforation and abscess without bleeding Status: Acute (2) Hypotension: Code(s): I95.9 - Hypotension, unspecified Status: Acute (3) Hypothyroidism: Code(s): E03.9 - Hypothyroidism, unspecified Status: Acute (4) Tobacco abuse: Code(s): Z72.0 - Tobacco use Status: Acute DS: Summary Hospital Course Reason for hospitalization: 43yo female with hypothyroidism here for abdominal pain. Please see H&P for detail. Hospital Course: Patient presents with abdominal pain found to have diverticulitis with microperforation. She was started on Zosyn. General surgery consulted and appreciate their input. WBC normal and pain resolved. +BMs. Diet started and advanced which she tolerated well. BP soft at times but patient remained asymptomatic from this. We placed parameters on narcotics. BP still soft this morning but normal orthostatic vitals and patient without dizziness, lightheadedness, chest pain or SOB. TSH normal. Patient was educated about the benefits of smoking cessation. She did well and was able to be discharged home on 01/25/24. Status at Discharge Cognitive/behavioral status at discharge: stable Time Spent with Patient Time attestation: Total time spent providing and/or coordinating discharge services: 32 minutes Time spent: Greater than 30 minutes Exam Narrative: AF 97.6 103/66 65 16 100% ra Gen - NARD Chest - CTA bilaterally, nml RR CV - RRR S1/S2 Abd - no abd pain, +BM Ext - No pedal edema Psych - Nml mood and affect Skin - Warm and dry DS: Data Data Completed and Pending Labs on day of discharge: Labs from last 24 hours 01/25/24 01/25/24 06:09 06:07 WBC 6.3 RBC 3.43 L Hgb 11.0 L Hct 32.5 L MCV 94.8 MCH 32.1 MCHC 33.8 RDW 13.1 Plt Count 182 MPV 10.9 H Immature Gran % (Auto) 0.2 Neut % (Auto) 52.0 Lymph % (Auto) 36.2 [place] % (Auto) 8.5 Eos % (Auto) 2.6 Baso % (Auto) 0.5 Lymph # (Auto) 2.26 [place] # (Auto) 0.5 Eos # (Auto) 0.2 Baso # (Auto) 0.0 Abs Immat Gran (auto) 0.01 Absolute Neuts (auto) 3.3 Absolute Nucleated RBC 0.000 Nucleated RBC % 0.0 Sodium 134 L Potassium 3.8 Chloride 109 H Carbon Dioxide 18 L Anion Gap 7 BUN 5 L D Creatinine 0.40 L Estim Creat Clear Calc 118 Estimated GFR > 60 Glucose 92 Calcium 7.9 L TSH (Reflex) 3.770 Random Cortisol 5.21 Discharge Plan Discharge Attending physician on discharge: Andrew Watts Consulting providers: Kaz Kat Discharging Clinician: Andrew Watts Anticipated Discharge Date/Time: 01/25/24 13:10 Patient Disposition: Home, Self-Care Activity: unlimited and no straining Diet: low fiber and other - see discharge instructions Discharge Instructions: You should stay on a low-fiber diet for the next 2 weeks. After that time you can switch to a high-fiber diet. Please complete your antibiotic course even if you are starting to feel well. Take precautions to avoid falls. Rise slowly from a lying or sitting position. Pause before standing or walking. Contact your doctor or call 911 and come to the Emergency Room if you have fevers, recurrent abdominal pain or other worrisome symptoms. Avoid NSAIDs (ibuprofen, naproxen, Aleve). Tylenol is safe to take. Follow-up with your primary care provider in 1-2 weeks. Please call for appointment. Please arrange through your doctor about having a colonoscopy in 4-6 weeks [address] you for using [facility] for your health care needs. Patient Instructions: Antibiotic Form Stand Alone Forms: General Discharge Information Follow-up/Referrals: Chris,DO Arie [
== END 2024-01-25 13:40 | disposition home or self-care (01) ==
LOC: ANHED 08:15 → ANH3MEDSUR 09:31
PROVIDERS: Student in an Organized Health Care Education/Training Program; Admitting Provider Internal Medicine; Emergency Provider Emergency Medicine; PCP Student in an Organized Health Care Education/Training Program; Visit Provider Internal Medicine
DX: K57.20 Diverticulitis of large intestine with perforation and abscess without bleeding (principal); I95.9 Hypotension, unspecified; E03.9 Hypothyroidism, unspecified; Z72.0 Tobacco use
CPT/HCPCS: 36415; 74177; 80048; 80053; 81001; 81025; 82533; 82948; 83605; 83690; 84443; 85025; 96361; 96365; 96372; 96375; 96376; 99285; A9270; G0378; J1650; J2270; J2405; J2470; J2543; J7030; Q9967

== ENCOUNTER 2024-04-22 03:08 | Day surgery (SDC) | payer OTHER, SELFPAY ==
[2024-04-11 10:59] VITALS: BMI 23.4
[2024-04-22 10:05] VITALS: BP 89/58; PULSE 63; RESP 18; TEMP 36.1; O2SAT 100
[2024-04-22] MEDS: LACTATED RINGERS 1,000 ML 150 ML IV CONT (10:14)
--- NOTE | 2024-04-22 10:35 | P.PNAN_ITS ---
Anes - Initial Pre Proc Eval Procedure: Operation Date: 04/22/24 11:00 Proposed Procedures p Screening Colonoscopy - Jakob Vela DO Date/Time: 04/22/24 10:35 Surgeon: Jakob Vela DO Pre Op Diagnosis: Screening for malignant neoplasm of colon Patient Data Age: 43 Gender: F Height: 1.6 m Weight: 59.3 kg Last Vital Signs Temp 36.1 C L 04/22/24 10:05 Pulse 63 04/22/24 10:05 Resp 18 04/22/24 10:05 BP 89/58 L 04/22/24 10:05 Pulse Ox 100 04/22/24 10:05 O2 Del Method Room Air 04/22/24 10:05 Allergies Allergy/AdvReac Type Severity Reaction Status Date / Time fluconazole Allergy Swelling Verified 04/22/24 10:03 terconazole Allergy Swelling Verified 04/22/24 10:03 Home Medications Medication Instructions Recorded Confirmed Type levothyroxine 75 mcg tablet 75 mcg PO DAILY 01/17/21 04/22/24 History (Synthroid) ergocalciferol (vitamin D2) 1,250 1,250 mcg PO DAILY 04/11/24 04/22/24 History mcg (50,000 unit) capsule Patient hx anesthesia problems: none Family hx anesthesia problems: none Results Review: All pre-operative results and documents have been reviewed as part of the pre- operative evaluation. [facility] Past Medical History Medical History Hypothyroidism Surgical History Surgical History No history of previous surgery Family History Family History Mother Patient's mother is in good health Father Lung fibrosis Social History Social History Social History: Patient smokes 3 4 cigarettes per day. She has smoked for about 10 years off and on. No alcohol or drug use. She lives at home with her and 4 children. She is a full code. She nominates her to be the individual who would make medical decisions for her if she is unable. Smoking status: Current every day smoker Tobacco type: cigarettes Second hand tobacco smoke exposure: No Alcohol intake: never Substance use: never Do You Feel Safe in your Home?: Yes Lack of Transportation: No Lack of Food: Never True Current Housing: I Have Housing Concerned About Future Housing: No Difficulty Paying Gas/Electric Bills: No Difficulty Paying for Meds: No Currently Unemployed: No Education: Bachelor's Degree Difficulty w/ Childcare or Family Care: No Living arrangements: with family Gender identity (if verbalized by the patient): Female Spiritual care concerns: No Anes - Eval Final PreProcedure Day of Procedure 04/22/24 10:35 Patient weight: normal Heart: regular rate and rhythm Lungs: clear to auscultation Airway: Mallampati scale class II Neurological: alert and oriented Last oral intake: >/= 8 hours ASA classification: II Emergent: no Anesthetic plan: proceed Anesthesia type and monitoring: general GIVS and standard monitoring Results Review: All pre-operative results and documents have been reviewed as part of the pre- operative evaluation. Informed Consent: The patient's anesthetic plan and its attendant risks and benefits were discus sed with the patient/family/POA. Questions were solicited and answers provided to the satisfaction of the patient/family/POA.
--- NOTE | 2024-04-22 10:55 | PM.IMHP ---
H&P: HPI History of Present Illness Date/Time: 04/22/24 10:55 Chief Complaint: screening for colorectal cancer Narrative: this is a 43-year-old woman who presents for her 1st colonoscopy. She denies any hematochezia melena. She denies family history of colon cancer. Review of Systems Review of Systems: All systems reviewed & are unremarkable except as noted in HPI and below Constitutional: Constitutional: Denies chills, Denies fever(s), Denies headache(s) and Denies weight loss Eyes: Eyes: Denies change in vision ENT: Denies dizziness, Denies headache(s), Denies neck mass and Denies throat swelling Cardiovascular: Cardiovascular: Denies chest pain, Denies lightheadedness and Denies dyspnea Respiratory: Respiratory: Denies cough, Denies dyspnea and Denies wheezing Gastrointestinal: Gastrointestinal: Denies abdominal pain, Denies change in bowel habits, Denies nausea and Denies vomiting Genitourinary: Genitourinary: Denies hematuria and Denies dysuria Musculoskeletal: Musculoskeletal: Reports as per HPI Integumentary/Breasts: Skin/Breast: Reports as per HPI Neurologic: Denies dizziness and Denies headache(s) Allergic/Immunologic: Allergic/Immunologic: Denies throat swelling and Denies wheezing PMFSH Past Medical History Medical History Hypothyroidism Surgical History Surgical History No history of previous surgery Family History Family History Mother Patient's mother is in good health Father Lung fibrosis Social History Social History Social History: Patient smokes 3 4 cigarettes per day. She has smoked for about 10 years off and on. No alcohol or drug use. She lives at home with her and 4 children. She is a full code. She nominates her to be the individual who would make medical decisions for her if she is unable. Smoking status: Current every day smoker Tobacco type: cigarettes Second hand tobacco smoke exposure: No Alcohol intake: never Substance use: never Do You Feel Safe in your Home?: Yes Lack of Transportation: No Lack of Food: Never True Current Housing: I Have Housing Concerned About Future Housing: No Difficulty Paying Gas/Electric Bills: No Difficulty Paying for Meds: No Currently Unemployed: No Education: Bachelor's Degree Difficulty w/ Childcare or Family Care: No Living arrangements: with family Gender identity (if verbalized by the patient): Female Spiritual care concerns: No Meds Home Medications and Allergies Home Medications Medication Instructions Recorded Confirmed Type levothyroxine 75 mcg tablet 75 mcg PO DAILY 01/17/21 04/22/24 History (Synthroid) ergocalciferol (vitamin D2) 1,250 1,250 mcg PO DAILY 04/11/24 04/22/24 History mcg (50,000 unit) capsule Allergies Allergy/AdvReac Type Severity Reaction Status Date / Time fluconazole Allergy Swelling Verified 04/22/24 10:03 terconazole Allergy Swelling Verified 04/22/24 10:03 Vital Signs Vital Signs - 24 hr 04/22/24 10:05 Temperature 97 F L Pulse Rate 63 Respiratory Rate 18 Blood Pressure 89/58 L Pulse Oximetry 100 Oxygen Delivery Room Air Exam Const: General: no acute distress and alert Orientation/consciousness: patient oriented x3 HENMT: Head: normocephalic and atraumatic Ears: hearing grossly normal bilaterally Face/Nose/Sinus: Normal nares present Mouth: Yes Normal oral and palatal mucosa present Eyes: Periorbital: periorbital findings normal Sclera: sclerae normal EOM: EOMs intact bilaterally Neck: Neck: normal visual inspection, no lymphadenopathy and trachea midline Chest: Chest palpation & inspection: normal inspection of the chest Resp: Effort & Inspection: normal respiratory effort Auscultation: clear to auscultation bilaterally Cardio: Jugular venous distension: no JVD Rate: regular rate Rhythm: regular rhythm Heart sounds: S1 normal heart sound present and S2 normal heart sound present Peripheral pulses: Peripheral pulses 2+ throughout GI: Inspection: normal to inspection GI Palp: Yes Soft to palpation, No Tenderness to palpation present (GI), No Guarding due to palpation present (GI) and No Rebound tenderness present Percussion: Yes normal to percussion Auscultation: normal bowel sounds : General: Yes no CVA tenderness Back/Spine/Pelvis: Back: no CVA tenderness Neuro: General: patient oriented x3, no focal motor deficits and CN's II-XI intact bilaterally Cognition (Neuro): normal cognition Speech: normal speech Motor exam (neuro): 5/5 motor strength present throughout Extrem: General: capillary refill normal and no clubbing, cyanosis or edema Assessment and Plan Assessment and plan (1) Screening for colorectal cancer: Code(s): Z12.11 - Encounter for screening for malignant neoplasm of colon; Z12.12 - Encounter for screening for malignant neoplasm of rectum Status: Acute Assessment and Plan: I have recommended colonoscopy. I have discussed the procedure, risks, benefits, and alternatives. Questions were answered. Patient is agreeable to proceed.
[2024-04-22 11:29] VITALS: BP 89/54; PULSE 67; RESP 17; O2SAT 100
[2024-04-22 11:30] LABS: BEDSIDEPREGUCG Negative (Negative)
[2024-04-22 11:39] VITALS: BP 90/54; PULSE 64; RESP 16; O2SAT 100
[2024-04-22 11:49] VITALS: BP 93/56; PULSE 60; RESP 13; O2SAT 100
== END 2024-04-22 12:00 | disposition home or self-care (01) ==
PROVIDERS: PCP Student in an Organized Health Care Education/Training Program; Visit Provider Surgery
PROC: 0DJD8ZZ Inspection of Lower Intestinal Tract, Via Natural or Artificial Opening Endoscopic (ICD-10-PCS; CPT 45378; principal; 2024-04-22 11:00)
DX: Z12.11 Encounter for screening for malignant neoplasm of colon (principal); K51.40 Inflammatory polyps of colon without complications; E03.9 Hypothyroidism, unspecified; F17.210 Nicotine dependence, cigarettes, uncomplicated
CPT/HCPCS: 45385; 88305; J2704; J7120